=== PATIENT | female | born 1955 | race Caucasian/White ===

== ENCOUNTER → 2016-11-28 | Outpatient (CLI) | payer OTHER ==
[~2016-11-28] MED LIST: PERCOCET1 TAB PO
--- NOTE | 2016-11-28 11:42 | RADIOLOGY REPORT PS360 ---
MRI-L-SPINE W/O, MRI-3D RENDERING/MYELOGRAM ORDERING PHYSICIAN : Mg Woo MD PATIENT AGE: 60 years GENDER: Female INDICATION: LOW BACK PAIN TECHNIQUE: : Noncontrast Multiplanar FLAIR, T1, T2 weighted images along with axial diffusion/ADC imaging performed on 1.5 T. Siemens, MRI. \ COMPARISON: CT lumbar spine from 11/27/2016 FINDINGS Disc space narrowing and spondylosis most evident L4/5, L5/S1. Prominent disc bulge. No significant appearing spinal stenosis L5/S1. Prominent disc space narrowing reflecting degenerative disc changes. , Moderate diffuse posterior hypertrophic ridging with mild disc bulge.. This posterior Endplate hypertrophic changes along with mild disc bulge is most evident at midline but does not appear to impinge upon thecal sac nor exiting nerve roots. It minor spondylotic disc continues towards foramen bilateral. Moderate facet arthropathy/ hypertrophy bilaterally . The combination of features yields mild/moderate foraminal encroachment bilateral.. L4/5. Pronounced Degenerative disc space narrowing, with discogenic reactive endplate changes most evident posteriorly.. Suspect previous discectomy with minimal right laminectomy. Minor irregularities right lamina. . Diffuse posterior hypertrophic ridging. Reactive endplate hypertrophic changes most evident here. Disc/osteophytes just abuts the thecal sac. On close inspection, on sagittal slice 7 & axial T1 weighted image 37, there suggestion, question of extremely minor,, subtle additional tiny disc protrusion extending just slightly beyond spurring at right paracentral & entry right foramen.. Mild/moderate facet hypertrophy most evident to the right... Mild / moderate bilateral foraminal encroachment this level most evident entry right foramen. L3/4. Mild degenerative disc bulge, mild eccentric and more evident to the left yields where it yields mild encroachment left foramen.... Mild to moderate facet hypertrophy.. Mild bilateral foraminal encroachment left greater than right. L2/3. Disc intact. Mild left foraminal disc bulge seen on sagittal views. Neural foramen remain widely patent. Moderate facet hypertrophy. Features overall slightly narrows the spinal canal..No foramen widely patent L1/2 disc intact neural foramen widely patent T12/L1. Disc intact neural foramen widely patent. 3-D MRI myelogram image set shows only very subtle tapering the spinal canal at L2/3 Images of the upper pelvis demonstrate only the top of the cystic feature noted at posterior pelvis on yesterday's CT. Small 12 mm cystic area posterior the right kidney however appears to be separate from right kidney on CT may be a small hepatic cyst CT note: This study was dictated with a voice-recognition system. There may be typographical error is related to such. If they are significant please notify us for corrections -----IMPRESSION . No prominent disc herniation. No disc extrusion . Mainly view Long-standing appearing Degenerative changes as above Disc space narrowing narrowing L4/5 L5/S1, with multilevel degenerative facet changes lower L-spine -- L4/5 marked degenerative disc space narrowing.. Posterior hypertrophic ridging with Disc/osteophytes features more evident this level. Only question extremely tiny disc protrusion extending slightly posterior beyond spurs at right paracentral region & towards entry right foramen as described above. . Note comments in text Mild/moderate bilateral foraminal encroachment -- L5/S1 degenerative Disc space narrowing. Disc/osteophyte features posteriorly.. Mild facet hypertrophy,. Features combine to yield Mild/moderate bilateral foraminal encroachment L5/S1. L2/3, L3/4. Only minor eccentric disc bulge to left yielding mild foraminal encroachment to left both levels. Mild facet hypertrophy most evident at L2/3. -Yields Slightly narrowing the spinal canal L2/3 more so than L3/4.
== END ==
LOC: RAD 06:58
DX: M54.5 Low back pain (principal); M51.16 Intervertebral disc disorders with radiculopathy, lumbar region

== ENCOUNTER → 2017-07-18 | Outpatient (CLI) | payer OTHER | LOC: LAB 19:35 | DX: T81.4XXA Infection following a procedure, initial encounter (principal) ==

== ENCOUNTER → 2017-09-16 | Outpatient (CLI) | payer OTHER ==
[2017-09-16 11:56] LABS: HEMOGLOBIN 13.7 g/dL (12.2-16.2); LYMPH # 1.4 K/mm3 (0.7-4.5); LYMPH % 27.3 % (10-50.0)
[2017-09-16 13:30] LABS: BUN 17 mg/dL (7-18); FREE THYROXIN INDEX 2.7 ug/dl (5.93-13.13)
[2017-09-16 13:33] LABS: GFR (ESTIMATED) 73 ML/MIN (59-)
== END ==
LOC: LAB 11:29
PROVIDERS: Obstetrics & Gynecology
DX: E03.9 Hypothyroidism, unspecified (principal)